=== PATIENT | female | born 1965 | race Hispanic/Latino ===

== ENCOUNTER 2020-05-07 23:01 | Emergency (ER) | payer SELFPAY ==
[2020-05-07] MEDS ORDERED: Ketorolac Tromethamine 30 MG/ML VIAL ONE (23:38)
[2020-05-07] MEDS ORDERED: Metoclopramide HCl 10 MG/2 ML VIAL ONE (23:43)
[2020-05-07 23:48] LABS: #Basophils 0.1 thou/uL (0.0-0.2); #Lymphocytes 0.4 thou/uL (1.20-3.40); #Monocytes 0.1 thou/uL (0.11-0.59); #Neutrophils 3.3 thou/uL (1.40-6.50); %Eosinophils 0.3 % (0.0-10.0); %Lymphocytes 11.5 % (21.0-51.0); %Monocytes 1.2 % (0.0-10.0); Hemoglobin 13.9 g/dL (12.0-16.0); Mean Corpuscular HGB CONC 33.6 g/dL (32.0-36.0); Mean Corpuscular Hemoglobin 28.3 pg (27.0-31.0); Mean Corpuscular Volume 84.3 fL (78.0-98.0); Mean Platelet Volume 8.9 fL (7.4-10.4); Platelet Count 205 thou/uL (130-400); RBC Distribution Width 12.6 % (11.5-14.5); Red Blood Cell (RBC) Count 4.92 mill/uL (4.20-5.40); White Blood Cell (WBC) Count 3.8 thou/uL (4.8-10.8)
[2020-05-08 00:35] LABS: ALT (SGPT) 17 U/L (8-55); AST (SGOT) 12 U/L (5-34); Albumin 4.1 g/dL (3.5-5.0); Alkaline Phosphatase 116 U/L (40-110); Anion Gap 14 mmol/L (10-20); BUN (Urea Nitrogen) 19 mg/dL (9.8-20.1); Bilirubin, Total 0.4 mg/dL (0.2-1.2); Calc. Creatinine Clearance 0 mL/min (70-130); Carbon Dioxide 19 mmol/L (22-29); Chloride 106 mmol/L (98-107); Estimated GFR-MDRD 73; Globulin 3.2 g/dL (2.4-3.5); Glucose 287 mg/dL (70-105); Potassium 3.3 mmol/L (3.5-5.1); Protein, Total 7.3 g/dL (6.0-8.3); Sodium 136 mmol/L (136-145)
--- NOTE | 2020-05-08 07:00 | RAD ---
PORTABLE CHEST: Date: 05/07/2020 HISTORY: COVID-negative. Complaining of shortness of breath. FINDINGS: Heart size appears borderline enlarged for portable technique. No definite infiltrative process seen. IMPRESSION: Borderline heart size. POS: OFF
== END 2020-05-08 00:59 | disposition home or self-care (01) ==
LOC: ERS 23:01
DX: R51.9 Headache, unspecified (principal); I10 Essential (primary) hypertension; Z79.899 Other long term (current) drug therapy
CPT/HCPCS: 71045; 80053; 84484; 85025; 93005; 96365; 96375; J1885; J2765